=== PATIENT | male | born 1940 | race Two or more races ===

== ENCOUNTER 2024-11-02 12:18 | Inpatient (IN) | payer OTHER ==
[~2024-11-02] VITALS: Ht 170.2 cm; Wt 83.9 kg
[2024-11-02] MEDS ORDERED: COZAAR25 MG (12:58)
[2024-11-02] MEDS ORDERED: PLAVIX75 MG (12:58)
[2024-11-02] MEDS ORDERED: ADULT LOW DOSE81 M1 (12:58)
[2024-11-02] MEDS ORDERED: ATORVASTATIN CA10 MG (12:59)
--- NOTE | 2024-11-02 13:05 | NUR ---
SE RECIBE PTE ALERTA Y ORIENTADO X3 ACOMPANADO DE CERVANTES [place]OSA. PTE REFIERE VENIR A S/E POR ULCERA EN CHAGO GONZALEZ. PTE REFIERE SER PTE DE DR. VIBHA ARREOLA. SE BERNIE S/V Y SE UBICA EN STEFANO CON BARANDAS ELEVADAS.
--- NOTE | 2024-11-02 14:12 | NUR ---
RN GANRICA ORIENTA A PTE SOBRE TX MEDICO Y EL MISMO REFIERE ENTENDER Y ACEPTAR. RN CANALIZA Y COLECTA MUESTRAS DE LAB. HACE ENTREGA DE ENVASE PARA U/A, SE NOTIFICAN ESTUDIOS PENDIENTES.
[2024-11-02 14:42] LABS: BASO % 0.7 % (0.1-1.2); EOS # 0.14 (0.04-0.54); EOS % 1.6 % (0.7-7.0); LYMPH # 1.06 (1.18-3.74); LYMPH % 11.9 % (19.3-53.1); MEAN PLATELET VOLUME 10.60 fl (9.4-12.4); MONO # 0.76 (0.24-0.82); MONO % 8.5 % (4.7-12.5); NEUT # 6.76 (1.56-6.13); NEUT % 76.1 % (34.0-71.1); RED CELL DISTRIBUTION WIDTH 16.2 % (11.6-14.4)
[2024-11-02 15:04] LABS: ALT/SGPT 23.0 U/L (12-78); AST/SGOT 28.0 U/L (15-37); BILIRUBIN TOTAL 1.05 mg/dL (0.3-1.2); BUN CREA RATIO 21.0 (7.0-25.0); CREATININE SERUM 2.37 mg/dL (0.70-1.30); GFR 26.43; GLOBULINA 3.9 G/DL (2.4-3.5); GLUCOSE FASTING 88.0 mg/dL (65-100); INR 1.18; OSMOLALITY SERUM 290.0 MOSM/KG (275-295)
[2024-11-02 15:58] LABS: URINE APPEARANCE Clear; URINE BILIRRUBIN Negative (NEGATIVE); URINE BLOOD Negative; URINE COLOR Yellow; URINE GLUCOSE Negative (NEGATIVE); URINE KETONE Negative (NEGATIVE); URINE LEUKOCYTE Negative; URINE NITRATE Negative; URINE PROTEIN Negative (NEGATIVE); URINE UROBILINOGEN 1.0 E.U./dl
[2024-11-02] MEDS ORDERED: CEFTRIAXONE SODIUM 2,000 MG VIAL IV ONE (16:00)
[2024-11-02 16:02] LABS: URINE BACTERIA 21.6 uL (0.0-1933); URINE CAST 1.46 uL (0.0-1.40); URINE RBC 2.3 uL (0.0-20.8)
[2024-11-02] MEDS ORDERED: CEFTRIAXONE SODIUM 2,000 MG VIAL ONE (16:04)
[2024-11-02 16:12] LABS: URINE EPITHELIAL CELLS 1.0 uL (0.0-38.8); URINE WBC 0.9 uL (0.0-23.2)
[2024-11-02] MEDS ORDERED: ENALAPRILAT DIHYDRATE 1.25 MG/ML VIAL IV PRN (16:30)
[2024-11-02] MEDS ORDERED: RINGERS SOLUTION,LACTATED 1,000 ML IV SCH (16:30)
[2024-11-02 16:59] VITALS: BP 127/68
[2024-11-02] MEDS ORDERED: APIXABAN 2.5 MG TABLET PO SCH (17:00)
[2024-11-02 17:34] VITALS: BP 127/68; O2SAT 99
[2024-11-02] MEDS ORDERED: LINEZOLID IN DEXTROSE 5% 300 ML IV SCH (21:00)
[2024-11-02 22:41] VITALS: BP 157/84; O2SAT 98
[2024-11-03 01:17] VITALS: BP 154/89; O2SAT 96
[2024-11-03 07:43] LABS: BASO % 0.8 % (0.1-1.2); EOS # 0.13 (0.04-0.54); EOS % 1.6 % (0.7-7.0); LYMPH # 1.10 (1.18-3.74); LYMPH % 13.9 % (19.3-53.1); MEAN PLATELET VOLUME 11.00 fl (9.4-12.4); MONO # 0.70 (0.24-0.82); MONO % 8.8 % (4.7-12.5); NEUT # 5.88 (1.56-6.13); NEUT % 74.0 % (34.0-71.1); RED CELL DISTRIBUTION WIDTH 15.9 % (11.6-14.4)
[2024-11-03 07:50] LABS: CHOL HDL RATIO 2.9 (0-5.0); HDL 49.0 mg/dl (40-60); LDL 80.0 mg/dl (0-130); VLDL 15.0 (0-39)
[2024-11-03 08:07] LABS: ALT/SGPT 20.0 U/L (12-78); AST/SGOT 27.0 U/L (15-37); BILIRUBIN TOTAL 0.96 mg/dL (0.3-1.2); BUN CREA RATIO 22.0 (7.0-25.0); CREATININE SERUM 1.7 mg/dL (0.70-1.30); GFR 38.78; GLOBULINA 3.1 G/DL (2.4-3.5); GLUCOSE FASTING 91.0 mg/dL (65-100); OSMOLALITY SERUM 286.0 MOSM/KG (275-295); TSH 2.92 uIU/mL (0.358-3.74)
[2024-11-03 08:33] VITALS: BP 155/74; O2SAT 97
[2024-11-03] MEDS ORDERED: ASPIRIN 81 MG TABLET.EC PO SCH (09:00)
[2024-11-03] MEDS ORDERED: ATORVASTATIN CALCIUM 10 MG TABLET PO SCH (09:00)
[2024-11-03] MEDS ORDERED: PANTOPRAZOLE SODIUM 40 MG TABLET.DR PO SCH (09:00)
[2024-11-03] MEDS ORDERED: CEFTRIAXONE SODIUM 2,000 MG in 0.9 % SODIUM CHLORIDE 100 ML IV SCH (09:00)
[2024-11-03] MEDS ORDERED: CLOPIDOGREL BISULFATE 75 MG TABLET PO SCH (09:00)
[2024-11-03] MEDS ORDERED: NIFEDIPINE 30 MG TAB.SA.OSM PO NR (12:40)
[2024-11-03] MEDS ORDERED: hydrALAZINE HCL 20 MG VIAL IV PRN (13:15)
[2024-11-03 19:11] VITALS: BP 121/77; O2SAT 96
[2024-11-04 02:03] VITALS: BP 128/76; O2SAT 98
[2024-11-04] MEDS ORDERED: NIFEDIPINE 30 MG TAB.SA.OSM PO SCH (09:00)
[2024-11-04 10:35] VITALS: BP 139/84; O2SAT 97
[2024-11-04 17:19] VITALS: BP 112/66; O2SAT 98
[2024-11-05 02:58] VITALS: BP 119/72; O2SAT 96
[2024-11-05 06:47] LABS: BASO % 0.9 % (0.1-1.2); EOS # 0.25 (0.04-0.54); EOS % 2.8 % (0.7-7.0); LYMPH # 1.52 (1.18-3.74); LYMPH % 17.3 % (19.3-53.1); MEAN PLATELET VOLUME 10.70 fl (9.4-12.4); MONO # 0.81 (0.24-0.82); MONO % 9.2 % (4.7-12.5); NEUT # 6.07 (1.56-6.13); NEUT % 69.1 % (34.0-71.1); RED CELL DISTRIBUTION WIDTH 15.9 % (11.6-14.4)
[2024-11-05 07:02] LABS: ALT/SGPT 20.0 U/L (12-78); AST/SGOT 25.0 U/L (15-37); BILIRUBIN TOTAL 0.92 mg/dL (0.3-1.2); BUN CREA RATIO 16.0 (7.0-25.0); CREATININE SERUM 1.46 mg/dL (0.70-1.30); GFR 46.22; GLOBULINA 3.4 G/DL (2.4-3.5); GLUCOSE FASTING 89.0 mg/dL (65-100); OSMOLALITY SERUM 283.0 MOSM/KG (275-295)
[2024-11-05 08:52] VITALS: BP 142/82; O2SAT 98
[2024-11-05 17:51] VITALS: BP 128/73
[2024-11-05] MEDS ORDERED: LINEZOLID 600 MG TABLET PO SCH (21:00)
[2024-11-06 00:11] VITALS: BP 134/62; O2SAT 97
[2024-11-06 08:11] VITALS: BP 140/80
[2024-11-06] MEDS ORDERED: SODIUM HYPOCHLORITE 1OZ TOP SCH (09:00)
[2024-11-06 18:00] VITALS: BP 134/63
[2024-11-07 02:42] VITALS: BP 129/73; O2SAT 96
[2024-11-07 08:35] VITALS: BP 129/74; O2SAT 95
[2024-11-07 18:09] VITALS: BP 116/58
[2024-11-08 02:00] VITALS: BP 160/84; O2SAT 99
[2024-11-08 06:13] LABS: BASO % 1.0 % (0.1-1.2); EOS # 0.20 (0.04-0.54); EOS % 2.6 % (0.7-7.0); LYMPH # 0.90 (1.18-3.74); LYMPH % 11.6 % (19.3-53.1); MEAN PLATELET VOLUME 10.30 fl (9.4-12.4); MONO # 0.65 (0.24-0.82); MONO % 8.3 % (4.7-12.5); NEUT # 5.92 (1.56-6.13); NEUT % 76.0 % (34.0-71.1); RED CELL DISTRIBUTION WIDTH 15.8 % (11.6-14.4)
[2024-11-08 07:11] LABS: ALT/SGPT 24.0 U/L (12-78); AST/SGOT 31.0 U/L (15-37); BILIRUBIN TOTAL 0.87 mg/dL (0.3-1.2); BUN CREA RATIO 16.0 (7.0-25.0); CREATININE SERUM 1.15 mg/dL (0.70-1.30); GFR 60.88; GLOBULINA 3.0 G/DL (2.4-3.5); GLUCOSE FASTING 79.0 mg/dL (65-100); OSMOLALITY SERUM 282.0 MOSM/KG (275-295)
[2024-11-08 08:57] VITALS: BP 147/70; O2SAT 97
[2024-11-08] MEDS ORDERED: MAGNESIUM SULFATE IN WATER 50 ML IV NR (10:50)
[2024-11-08] MEDS ORDERED: AMOX-CLAV 875-1 EAC1 PO (13:00)
[2024-11-08] MEDS ORDERED: ELIQUIS2.5 MG PO (13:00)
[2024-11-08] MEDS ORDERED: INTESTINEX680 M1 PO (13:00)
[2024-11-08] MEDS ORDERED: ATORVASTATIN CA10 MG PO (13:01)
[2024-11-08] MEDS ORDERED: CLOPIDOGREL BIS75 MG PO (13:01)
[2024-11-08] MEDS ORDERED: NIFEDIPINE ER30 M1 PO (13:02)
[2024-11-08] MEDS ORDERED: ST. JOSEPH ASPI81 M2 PO (13:03)
[2024-11-08] MEDS ORDERED: PANTOPRAZOLE SO40 MG PO (13:03)
[2024-11-08] MEDS ORDERED: COZAAR25 MG PO (13:03)
== END 2024-11-08 13:19 | disposition home or self-care (01) | DRG 593 ==
LOC: ER 12:18 → MEDI 17:31
PROVIDERS: Emergency Medicine; ADMIT Internal Medicine; ATTEND Internal Medicine
PROC: B54CZZZ Ultrasonography of Left Lower Extremity Veins (ICD-10-PCS; principal; 2024-11-02)
PROC: BT43ZZZ Ultrasonography of Bilateral Kidneys (ICD-10-PCS; 2024-11-02)
PROC: B44GZZZ Ultrasonography of Left Lower Extremity Arteries (ICD-10-PCS; 2024-11-02)
DX: L97.829 Non-pressure chronic ulcer of other part of left lower leg with unspecified severity (principal); N17.9 Acute kidney failure, unspecified; I12.9 Hypertensive chronic kidney disease with stage 1 through stage 4 chronic kidney disease, or unspecified chronic kidney disease; N18.9 Chronic kidney disease, unspecified; E78.5 Hyperlipidemia, unspecified